=== PATIENT | female | born 1980 | race Caucasian/White ===

== ENCOUNTER → 2020-06-16 11:45 | Outpatient (CLI) | payer BC, SELFPAY ==
--- NOTE | 2020-06-16 12:22 | XR_ITS ---
PROCEDURE: XR LUMBAR SPINE MIN 4V CLINICAL INDICATION: BACK PAIN COMPARISON: No exams were available for comparison FINDINGS: No acute fractures or traumatic subluxation. Minor degenerative changes with facet joint arthropathy at the lower lumbar levels. Vertebral body heights and alignment are maintained. Paravertebral soft tissues are unremarkable. IMPRESSION: No acute fractures or traumatic subluxation. Dictated by: Susanne Ryan 06/16/2020 15:11 Susanne Ryan in [place] 06/16/2020 15:11
--- NOTE | 2020-06-16 12:22 | XR_ITS ---
PROCEDURE: XR HIP RT 2-3V W/PELVIS CLINICAL INDICATION: RT HIP PAIN COMPARISON: No exams were available for comparison FINDINGS: Degenerative changes of the right hip joint is noted with subchondral sclerosis and mild loss of joint space. No acute fractures or dislocations. Bone density is normal. No significant soft tissue abnormality. IMPRESSION: No acute fractures or dislocations. Dictated by: Susanne Ryan 06/16/2020 15:18 Susanne Ryan in [facility] 06/16/2020 15:18
--- NOTE | 2020-06-16 12:22 | XR_ITS ---
PROCEDURE: XR HIP LT 2-3V W/PELVIS CLINICAL INDICATION: LT HIP PAIN COMPARISON: No exams were available for comparison FINDINGS: Moderate degenerative changes of the left hip joint with the subchondral sclerosis, mild loss of joint space and osteophyte formation. No acute fractures or dislocations. Bone density is normal. No significant soft tissue abnormality. IMPRESSION: Moderate degenerative changes of the left hip joint. No acute fractures or dislocations. Dictated by: Susanne Ryan 06/16/2020 15:19 Susanne Ryan in [place] 06/16/2020 15:19
[2020-06-16 13:33] LABS: C-Reactive Protein 2.9 mg/L (0-4)
[2020-06-16 14:20] LABS: Erythrocyte Sedimentation Rate 11 mm/hr (0-20)
[2020-06-19 23:56] LABS: Antinuclear Antibodies, IFA Positive (.)
== END ==
PROVIDERS: PCP Family Medicine; Visit Provider Family Medicine
DX: M25.551 Pain in right hip (principal); M13.0 Polyarthritis, unspecified; M54.9 Dorsalgia, unspecified
CPT/HCPCS: 36415; 72110; 73502; 85651; 86038; 86140